=== PATIENT | male | born 1990 | race Hispanic/Latino ===

== ENCOUNTER 2016-12-28 23:48 | Emergency (ER) | payer OTHER ==
[~2016-12-28] VITALS: Ht 175.3 cm; Wt 93.2 kg
[2016-12-28 23:51] VITALS: BP 153/92; PULSE 70; RESP 16; O2SAT 100
[2016-12-28] MEDS ORDERED: Ondansetron 2 mg/mL 2 mL Inj ONE (23:56)
--- NOTE | 2016-12-29 00:05 | ED.REPORT ---
HPI-Abd Pain M Under 40 Date of Service Dec 29, 2016 ED Provider: 26 y/o male with no pertinent hx presents to the ED complaining of diffuse abdominal pain, worse in the periumbilical region, since yesterday morning. Associated sx include mild constipation, nausea and vomiting. He denies fever, diarrhea, hematochezia and melena. He also denies hx of abdominal surgeries. Nursing Notes Stated Complaint: ABDOMINAL PAIN/ VOMITING Chief Complaint: Male Abdominal Pain Nursing Notes Reviewed: Yes Allergies: Coded Allergies: No Known Allergies (Verified Allergy, Unknown, 12/28/16) Scheduled Ondansetron ODT (Ondansetron ODT) 8 Mg Tab.rapdis 8 MG PO QID General Time Seen by MD: 00:04 Chief Complaint Abdominal pain Hx Obtained From: Patient Arrived By: Walk-in Sudden in Onset?: Yes Onset Occurred: 9 - 12 hours ago Symptom Duration: Since onset Location: : Diffuse Quality: Painful Radiation: : Does not radiate Severity: Current: Moderate Severity: Maximum: Moderate Recent Healthcare: No recent doctor visit Similar Sx Previous: No Past Medical History Past Medical History None reported Past Surgical History none reported Family History Father DM Smoking History Unknown if Ever Smoker Social History Other Social History: Good social support Ambulatory Status Independent Review of Systems Constitutional: Denies: Fever GI: Reports: Abdominal pain, Constipation, Nausea, Vomiting, Denies: Diarrhea, Hematochezia, Melena Complete sys rev & neg: except as marked. Physical Exam Initial Vital Signs Vital Signs (First) Date Time Temp Pulse Resp B/P Pulse Ox O2 Delivery O2 Flow Rate FiO2 12/28/16 23:51 36.6 70 16 153/92 100 Room Air Initial VS: Reviewed Head / Eyes: Atraumatic, Normocephalic Neck: Supple, Non-tender, Full range of motion Extremities: Vascular intact, Neuro intact, No swelling, No tenderness Neurologic: Alert, Oriented, Nonfocal General/Constitutional: Awake, Alert, Cooperative Distress / Hydration: Positive: Distress mild, Negative: Dehydration mild Pt is not diaphoretic. Respiratory / Chest: Atraumatic, No respiratory distress, No wheezing Cardiovascular: Heart rate NL, Heart sounds NL Abdomen: Atraumatic, Soft, BS normoactive, No distention Tenderness/Guarding/Rebound: Positive: Tender diffuse (mildly tender to palpation) Back: Atraumatic, Full range of motion Skin: Atraumatic, No rash, Warm, Dry, Intact Interpretation & Diagnostics Lab Results Interpretation Result Diagram: 12/29/16 0023 12/29/16 0023 Test 12/29/16 00:23 White Blood Count 11.4th/mm3 (3.8-10.1) Red Blood Count 5.65mil/mm3 (4.40-5.80) Hemoglobin 16.9g/dL (13.8-17.2) Hematocrit 48.2% (41.0-50.0) Mean Corpuscular Volume 85.3fL (81-100) Mean Corpuscular Hemoglobin 29.9pg (27.0-35.0) Mean Corpuscular Hemoglobin Concent 35.1% (32.0-37.0) Red Cell Distribution Width 12.6% (12.3-15.4) Platelet Count 220bil/L (150-400) Neutrophils (%) (Auto) 83.1% (40-74) Lymphocytes (%) (Auto) 12.7% (14-46) Monocytes (%) (Auto) 3.3% (4-12) Eosinophils (%) (Auto) 0.4% (0-5) Basophils (%) (Auto) 0.3% (0-3) Hold Blue Top Tube Received (Received) Sodium Level 139mEq/L (134-144) Potassium Level 3.8mEq/L (3.5-5.2) Chloride Level 97mEq/L (97-108) Carbon Dioxide Level 23mmol/L (18-29) Blood Urea Nitrogen 9mg/dL (6-20) Creatinine 0.78mg/dL (0.76-1.27) Estimat Glomerular Filtration Rate 126mL/min (>59) Glucose Level 125mg/dL (60-99) Calcium Level 10.3mg/dL (8.5-10.1) Magnesium Level 1.8mg/dL (1.6-2.6) Total Bilirubin 0.6mg/dL (0.0-1.2) Aspartate Amino Transf (AST/SGOT) 27U/L (0-50) Alanine Aminotransferase (ALT/SGPT) 31U/L (0-44) Alkaline Phosphatase 79U/L (25-150) Total Protein 9.0g/dL (6.4-8.4) Albumin 5.1g/dL (3.4-5.0) Lipase 23U/L (13-60) Hold Mcconnell Top Tube Received (Received) CT Abd / Pelvis Interpretation Conclusion: no signs of appendicitis, bowel inflammation or obstruction/ Signed by Dr. Gloria Maradiaga 12/29/16 01:26 Interpretation / Wet Read by: Interpret - Radiologist Re-Eval/Medical Decision Med Decision/Clinical Course 26-year-old presents with a day of abdominal pain and numbness bowel movement today only. Exam is fairly benign with mild diffuse tenderness but no rebound or guarding. He does not mild leukocytosis. CT was obtained and no significant findings noted. Appendix is well seen and appears quite normal. There is moderate solid stool in the right colon. Provided with milk of magnesia tonight for anticipated improvement in his bowel movements tomorrow. Avoiding opioid pain relievers to avoid complicating constipation. Follow up with PCP or prompt return if worse, bleeding, or other new symptoms. Source of Hx: Old records Re-Evaluation/Progress : Time of Eval: 01:55 Re-Evaluation/Progress Note: Rechecked pt. Discussed lab results, imaging results, diagnosis and plan to discharge. Pt understands and agrees with the plan. F/U instruction and RTER warning given. All questions addressed. Counseled Regarding: Diagnosis, Lab results, Need for follow-up, When/why to return to ED Patient Discharge & Departure Primary Impression: Constipation Constipation type: unspecified constipation type Qualified Code: K59.00 - Constipation, unspecified Additional Impression: Generalized abdominal pain Disposition: Home Discharge Condition All VS Reviewed: Yes Condition: Stable Patient Instructions: Acute Abdominal Pain (ED), Constipation (ED) Additional Instructions: Drink plenty of clear fluids, begin with a simple diet, and advance slowly as tolerated. Follow-up with your doctor in the office. Return if worsening pain, or if you develop blood or black material in stool or vomit. Referrals: Henrry Bang MD (PCP) Scribe Attestation Portions of this note were transcribed by Justin Partida. I,, personally performed the history, physical exam and medical decision-making;I reviewed and confirmed the accuracy of the information in the transcribed note. Signed by Vania Monreal. 12/29/16 copies to: Henrry Bang MD, Christopher W MD Dec 29, 2016 00:04 Justin Partida Dec 29, 2016 00:17
[2016-12-29] MEDS ORDERED: 0.9% Sodium Chloride 1,000 ML IV ONE (00:20)
[2016-12-29] MEDS ORDERED: Ondansetron 2 mg/mL 2 mL Inj IVPUSH ONE (00:20)
[2016-12-29 00:29] LABS: BASOPHILS % (AUTO) 0.3 % (0-3); EOSINOPHILS % (AUTO) 0.4 % (0-5); MONOCYTES % (AUTO) 3.3 % (4-12); Mean Corpuscular Hemoglobin 29.9 pg (27.0-35.0); Mean Corpuscular Volume 85.3 fL (81-100); NEUTROPHILS % (AUTO) 83.1 % (40-74); Platelet Count 220 bil/L (150-400)
[2016-12-29 00:51] LABS: Magnesium 1.8 mg/dL (1.6-2.6)
[2016-12-29] MEDS ORDERED: Promethazine Inj 12.5 MG in Dextrose 5%-Pha MIX 50 ML IV ONE (01:00)
[2016-12-29] MEDS ORDERED: Magnesium Hydroxide 10 mL Oral Concentration PO ONE (01:45)
[2016-12-29] MEDS ORDERED: ONDA8TAB10 PO (01:52)
[2016-12-29] MEDS ORDERED: Ketorolac 15 mg/mL Inj IVPUSH ONE (02:00)
[2016-12-29 02:41] VITALS: BP 138/87; PULSE 64; RESP 20; O2SAT 98
--- NOTE | 2016-12-29 08:07 | DRSVH ---
P head reveal in [facility]URE: CT ABDOMEN AND PELVIS WITH CONTRAST ([id number]) INDICATIONS: abdo pain 18 hours TECHNIQUE: After the administration of intravenous contrast, 5 mm thick sections acquired from the diaphragm to the symphysis. 5 mm coronal and sagittal reformats were acquired. For radiation dose reduction, the following was used: automated exposure control, adjustment of mA and/or kV according to patient siz e. COMPARISON: None. FINDINGS: Image quality: Excellent. ABDOMEN: Lung bases: Lung bases are clear. Heart size is normal. Solid organs: Liver and spleen are normal in size and enhancement. Gallbladder is normal. Biliary system is non dilated. Pancreas enhances normally. No adrenal nodules. Kidneys demonstrate normal size and enhancement, without hydronephrosis. Peritoneum and bowel: Bowel loops demonstrate normal wall thickness and caliber. No free fluid or a ir. Normal appendix. Nodes and vessels: No retroperitoneal or mesenteric adenopathy by size criteria. Aorta and inferior vena cava are normal in size. Miscellaneous: No ventral hernias. PELVIS: Genitourinary: Bladder wall thickness is normal. Miscellaneous: No inguinal hernias or adenopathy. Bones: No suspicious bony lesions. No vertebral body compression fractures. IMPRESSION: 1. No CT evidence of acute pathology in the abdomen or pelvis. 2. There are no discrepancies with the preliminary report. Dictated by: Kingsley Munroe M.D. on 12/29/2016 at 8:04 Approved by: Kingsley Munroe M.D. on 12/29/2016 at 8:06
[2016-12-30] MEDS ORDERED: PROM25SU46 RC (17:48)
== END 2016-12-29 02:43 | disposition home or self-care (01) ==
LOC: SED 23:48
DX: K59.00 Constipation, unspecified (principal); R10.84 Generalized abdominal pain
CPT/HCPCS: 36415; 74177; 80053; 83690; 83735; 85025; 96361; 96374; 96375; 96376; 99285; J1885; J2405; J2550; J7030; Q9967

== ENCOUNTER 2016-12-30 14:17 | Emergency (ER) | payer OTHER ==
[~2016-12-30] VITALS: Ht 175.3 cm; Wt 93.2 kg
[~2016-12-30 14:17] MED LIST: ONDA8TAB10 PO
[2016-12-30 14:21] VITALS: BP 131/81; PULSE 61; RESP 16; O2SAT 100
--- NOTE | 2016-12-30 15:07 | ED.REPORT ---
HPI-Abd Pain M Under 40 Date of Service Dec 30, 2016 ED Provider: Hoang Downs MD Patient is a 26 year old male who presents to the ED complaining of vomiting onset today. Associated symptoms include nausea, constipation and weakness. Patient denies diarrhea, fever or dysuria. He reports that he uses marijuana three times a day. The patient was seen here at the ED complaining of abdominal pain, constipation and vomiting two days ago. He reports that he felt fine and had not vomited yesterday but when taking his daughter to UC today he started getting nausea and vomited again. The patient states that he used Zofran after UC with no relief. He denies any abdominal surgeries. Patient had an unremarkable CT that showed a normal appendix and mild stool. Nursing Notes Stated Complaint: VOMITING/WEAK Chief Complaint: Male Abdominal Pain Nursing Notes Reviewed: Yes Allergies: Coded Allergies: No Known Allergies (Verified Allergy, Unknown, 12/30/16) Scheduled Ondansetron ODT (Ondansetron ODT) 8 Mg Tab.rapdis 8 MG PO QID Scheduled PRN Promethazine HCl (Phenergan) 25 Mg Supp.rect 25 MG RC TID PRN PRN For Nausea General Time Seen by MD: 15:06 Chief Complaint Other (vomiting) Hx Obtained From: Patient Arrived By: Walk-in Sudden in Onset?: No Onset Occurred: 3 days ago Symptom Duration: Since onset Progression since Onset: Unchanged Location: : Diffuse Quality: Painful Severity: Current: Mild Pertinent Negative: Relieved by nothing Recent Healthcare: Recent doctor visit Similar Sx Previous: Yes Past Medical History Past Medical History None reported Past Surgical History none reported Family History Father DM Smoking History Unknown if Ever Smoker Social History Alcohol Use: Denies alcohol use Drug Use: THC (up to 3 times a day) Other Social History: Good social support Ambulatory Status Independent Review of Systems Constitutional: Reports: Malaise, Weakness - generalized, Denies: Fever Respiratory: Denies: Non-productive cough, Shortness of breath GI: Reports: Constipation, Nausea, Vomiting, Denies: Diarrhea Male: Denies Dysuria Complete sys rev & neg: except as marked. Skin: Denies Itching, Denies Rash Physical Exam Initial Vital Signs Vital Signs (First) Date Time Temp Pulse Resp B/P Pulse Ox O2 Delivery O2 Flow Rate FiO2 12/30/16 14:21 36.9 61 16 131/81 100 Room Air Initial VS: Reviewed General/Constitutional: Awake, Alert Respiratory / Chest: Atraumatic, Breath sounds NL, Breath sounds = bilat, No respiratory distress Cardiovascular: Heart rate NL, Regular rhythm, Heart sounds NL, No gallop, No murmurs, No rubs Abdomen: Atraumatic, Soft, Non-tender, BS normoactive Back: Atraumatic, No CVA tenderness Head / Eyes: Atraumatic, Normocephalic, PERRL, EOMI Rectum / Perineum: Atraumatic, No gross blood rectum nontender guaiac negative Neurologic: Oriented X3, Speech NL, No motor deficits, No sensory deficits Skin: Atraumatic, Color NL, No rash, Warm, Dry Psychiatric: Affect NL, Mood NL Interpretation & Diagnostics Lab Results Interpretation Result Diagram: 12/30/16 1610 12/30/16 1610 Test 12/30/16 16:10 12/30/16 17:14 12/30/16 17:15 White Blood Count 9.9th/mm3 (3.8-10.1) Red Blood Count 5.61mil/mm3 (4.40-5.80) Hemoglobin 16.7g/dL (13.8-17.2) Hematocrit 47.1% (41.0-50.0) Mean Corpuscular Volume 84.0fL (81-100) Mean Corpuscular Hemoglobin 29.8pg (27.0-35.0) Mean Corpuscular Hemoglobin Concent 35.5% (32.0-37.0) Red Cell Distribution Width 12.5% (12.3-15.4) Platelet Count 207bil/L (150-400) Neutrophils (%) (Auto) 87.6% (40-74) Lymphocytes (%) (Auto) 9.7% (14-46) Monocytes (%) (Auto) 2.3% (4-12) Eosinophils (%) (Auto) 0% (0-5) Basophils (%) (Auto) 0.2% (0-3) Sodium Level 136mEq/L (134-144) Potassium Level 3.7mEq/L (3.5-5.2) Chloride Level 96mEq/L (97-108) Carbon Dioxide Level 21mmol/L (18-29) Blood Urea Nitrogen 12mg/dL (6-20) Creatinine 0.88mg/dL (0.76-1.27) Estimat Glomerular Filtration Rate 110mL/min (>59) Glucose Level 93mg/dL (60-99) Calcium Level 10.0mg/dL (8.5-10.1) Magnesium Level 1.9mg/dL (1.6-2.6) Total Bilirubin 0.9mg/dL (0.0-1.2) Aspartate Amino Transf (AST/SGOT) 27U/L (0-50) Alanine Aminotransferase (ALT/SGPT) 23U/L (0-44) Alkaline Phosphatase 75U/L (25-150) Total Protein 8.5g/dL (6.4-8.4) Albumin 4.9g/dL (3.4-5.0) Lipase 31U/L (13-60) Hold Mcconnell Top Tube Received (Received) Urine Color Yellow (YELLOW) Urine Appearance Clear (CLEAR,HAZY) Urine pH 7.0 (5.0-8.0) Urine Specific [place] 1.010 (1.003-1.035) Urine Protein Negativemg/dL (NEG,TRACE) Urine Glucose (UA) Negativemg/dL (NEGATIVE) Urine Ketones 40mg/dL (NEGATIVE) Urine Occult Blood Negative (NEGATIVE) Urine Nitrite Negative (NEGATIVE) Urine Bilirubin Negative (NEGATIVE) Urine Urobilinogen Normalmg/dL (NORMAL) Urine Leukocyte Esterase Negative (NEGATIVE) Urine RBC 0-2/hpf (0-2) Urine WBC 0-5/hpf (0-5) Urine Epithelial Cells Occasional/hpf (NONE-MOD) Urine Crystals Amorphous urates (NONE Urine Bacteria None/hpf (NONE-FEW) Urine Hyaline Casts None/lpf (NONE) Urine Granular Casts None seen (NONE SEEN) Urine Waxy Casts None seen (NONE SEEN) Urine Red Blood Cell Casts None seen (NONE SEEN) Urine White Blood Cell Casts None seen (NONE SEEN) Urine Mucus None seen (None Seen) Urine Trichomonas None seen (NONE SEEN) Urine Yeast None (NONE SEEN) Urinalysis Comment None Urine Culture Reflexed Not indicated Re-Eval/Medical Decision Source of Hx: Old records Summary of Info: ABDOMEN CT FROM 12/29/16: ABDOMEN: Lung bases: Lung bases are clear. Heart size is normal. Solid organs: Liver and spleen are normal in size and enhancement. Gallbladder is normal. Biliary system is non dilated. Pancreas enhances normally. No adrenal nodules. Kidneys demonstrate normal size and enhancement, without hydronephrosis. Peritoneum and bowel: Bowel loops demonstrate normal wall thickness and caliber. No free fluid or air. Normal appendix. Nodes and vessels: No retroperitoneal or mesenteric adenopathy by size criteria. Aorta and inferior vena cava are normal in size. Miscellaneous: No ventral hernias. PELVIS: Genitourinary: Bladder wall thickness is normal. Miscellaneous: No inguinal hernias or adenopathy. Bones: No suspicious bony lesions. No vertebral body compression fractures. IMPRESSION: 1. No CT evidence of acute pathology in the abdomen or pelvis. 2. There are no discrepancies with the preliminary report. Dictated by: Kingsley Munroe M.D. on 12/29/2016 at 8:04 Approved by: Kingsley Munroe M.D. on 12/29/2016 at 8:06 Re-Evaluation/Progress #1: Time of Eval: 16:21 Patient Status: Condition improved Re-Evaluation/Progress Note: Patient reports that he is feeling better Re-Evaluation/Progress #2: Time of Eval: 17:40 Patient Status: Condition improved, Mild relief Re-Evaluation/Progress Note: Patient reports that he is no longer nauseous. Discussed lab results and plan for discharge pending urine results. Patient understands and agrees to plan. All questions were addressed. Counseled Regarding: Diagnosis, Lab results, Need for follow-up, When/why to return to ED Patient Discharge & Departure Primary Impression: Nausea & vomiting Vomiting type: unspecified Vomiting Intractability: intractable Qualified Code: R11.2 - Nausea with vomiting, unspecified Disposition: Home Discharge Condition All VS Reviewed: Yes Condition: Stable Patient Instructions: Acute Abdominal Pain (ED) Additional Instructions: Emergency Department evaluation included an area, examination and labs. Gave IV fluids and nausea medications with good results. Get adequate fluids and use milk of magnesia daily until bowels are working. It is possible that your episodic abdominal pain nausea and vomiting related to cannabis use. We advise discontinuing use of cannabis. Phenergan suppositories as needed for nausea and vomiting. Follow-up with primary care soon, return to emergency department for increasing abdominal pain uncontrolled nausea or vomiting. Referrals: Yaz Roldan MD (PCP) Scribe Attestation Portions of this note were transcribed by Carina Tracy. I, Dr. Downs personally performed the history, physical exam and medical decision-making; I reviewed and confirmed the accuracy of the information in the transcribed note. Signed by: Vania Mcdonald, 12/30/16 copies to: Yaz Roldan MD, Donald L MD Dec 30, 2016 15:06 Kirsten Tracy Dec 30, 2016 15:14
[2016-12-30] MEDS ORDERED: 0.9% Sodium Chloride 1,000 ML IV ONE (15:08)
[2016-12-30] MEDS ORDERED: Ondansetron 2 mg/mL 2 mL Inj IVPUSH PRN (15:10)
[2016-12-30 16:13] LABS: BASOPHILS % (AUTO) 0.2 % (0-3); EOSINOPHILS % (AUTO) 0 % (0-5); MONOCYTES % (AUTO) 2.3 % (4-12); Mean Corpuscular Hemoglobin 29.8 pg (27.0-35.0); NEUTROPHILS % (AUTO) 87.6 % (40-74); Platelet Count 207 bil/L (150-400)
[2016-12-30 16:35] LABS: Magnesium 1.9 mg/dL (1.6-2.6)
[2016-12-30 17:39] LABS: APPEARANCE,URINE CLEAR (CLEAR,HAZY); COLOR,URINE YELLOW (YELLOW); OCCULT BLOOD,URINE NEGATIVE (NEGATIVE); UROBILINOGEN,URINE NORMAL (NORMAL)
[2016-12-30] MEDS ORDERED: PROM25SU46 RC (17:48)
[2016-12-30 18:14] VITALS: BP 117/70; PULSE 61; RESP 16; O2SAT 99
== END 2016-12-30 18:14 | disposition home or self-care (01) ==
LOC: SED 14:17
DX: R11.2 Nausea with vomiting, unspecified (principal)
CPT/HCPCS: 36415; 80053; 81000; 83690; 83735; 85025; 93005; 96374; 99284; J2405; J7030

== ENCOUNTER 2017-01-01 23:16 | Emergency (ER) | payer OTHER ==
[~2017-01-01] VITALS: Ht 175.3 cm; Wt 93.2 kg
[~2017-01-01 23:16] MED LIST changes: +PROM25SU46 RC
[2017-01-01 23:22] VITALS: BP 137/87; PULSE 74; RESP 16; O2SAT 100
--- NOTE | 2017-01-02 00:49 | ED.REPORT ---
HPI-Abd Pain M Under 40 Date of Service Jan 02, 2017 ED Provider: Partha Manzano DO Pt is a 26 year old male presenting to the ED complaining of intermittent vomiting onset 5 days ago. He states that this is his third time in the ED this week for similar symptoms. His vomiting has persisted intermittently since onset. Today he felt okay throughout the day, and was able to keep some crackers down but his symptoms returned 2 hours ago. Associated symptoms include abdominal discomfort which he feels like is air in his stomach, constipation, and weakness. Denies using any opiates, marijuana or pain medications. He had a normal CT when he was seen in the ER a few days ago. Denies SOB or fever. Nursing Notes Stated Complaint: VOMITING Chief Complaint: Male Abdominal Pain Nursing Notes Reviewed: Yes Allergies: Coded Allergies: No Known Allergies (Verified Allergy, Unknown, 12/30/16) Scheduled Ondansetron ODT (Ondansetron ODT) 8 Mg Tab.rapdis 8 MG PO QID Scheduled PRN Promethazine HCl (Phenergan) 25 Mg Supp.rect 25 MG RC TID PRN PRN For Nausea General Time Seen by MD: 00:25 Chief Complaint Vomiting moderate Hx Obtained From: Patient Arrived By: Walk-in Sudden in Onset?: No Onset Occurred: 5 days ago Symptom Duration: Since onset Progression since Onset: Intermittent Location: : Diffuse Severity: Current: Mild Severity: Maximum: Mild Recent Healthcare: No recent hospitalization, Recent doctor visit Similar Sx Previous: Yes Past Medical History Past Medical History None reported Past Surgical History none reported Family History Father DM Smoking History Never Smoker Social History Alcohol Use: Denies alcohol use Drug Use: Denies drug use Other Social History: Good social support Ambulatory Status Independent Review of Systems Constitutional: Reports: Weakness - generalized, Denies: Fever Respiratory: Denies: Shortness of breath GI: Reports: Abdominal pain, Constipation, Nausea, Vomiting Complete sys rev & neg: except as marked. Physical Exam Initial Vital Signs Vital Signs (First) Date Time Temp Pulse Resp B/P Pulse Ox O2 Delivery O2 Flow Rate FiO2 01/01/17 23:22 36.9 74 16 137/87 100 Room Air Initial VS: Reviewed Head / Eyes: Atraumatic, Normocephalic, PERRL ENT: Mucous membranes moist, Conjunctiva normal, No scleral icterus Extremities: Vascular intact, Neuro intact, No swelling, No tenderness Skin: Warm, Dry, No cyanosis Neurologic: Alert, Oriented, Nonfocal Psychiatric: Mood/affect normal, Behavior normal, Normal thought content General/Constitutional: Awake, Alert, No acute distress, Well appearing Respiratory / Chest: Breath sounds NL, Breath sounds = bilat, No respiratory distress, No rales, No rhonchi, No wheezing, No stridor Cardiovascular: Heart rate NL, Regular rhythm, Heart sounds NL, No murmurs Abdomen: Atraumatic, Soft, BS normoactive, No distention No focal tenderness to palpation Interpretation & Diagnostics CT abd/pelvis with contrast from 12/29/[address]: 1[address] evidence of acute pathology in the abdomen or pelvis. 2. There are no discrepancies with the preliminary report. Dictated by: Kingsley Munroe M.D. on 12/29/2016 at 8:04 Approved by: Kingsley Munroe M.D. on 12/29/2016 at 8:06 Lab Results Interpretation Result Diagram: 01/02/17 0144 01/02/17 0144 Test 01/02/17 01:44 01/02/17 01:45 White Blood Count 10.9th/mm3 (3.8-10.1) Red Blood Count 5.47mil/mm3 (4.40-5.80) Hemoglobin 16.3g/dL (13.8-17.2) Hematocrit 45.2% (41.0-50.0) Mean Corpuscular Volume 82.6fL (81-100) Mean Corpuscular Hemoglobin 29.8pg (27.0-35.0) Mean Corpuscular Hemoglobin Concent 36.1% (32.0-37.0) Red Cell Distribution Width 12.4% (12.3-15.4) Platelet Count 244bil/L (150-400) Neutrophils (%) (Auto) 78.2% (40-74) Lymphocytes (%) (Auto) 14.6% (14-46) Monocytes (%) (Auto) 6.3% (4-12) Eosinophils (%) (Auto) 0.3% (0-5) Basophils (%) (Auto) 0.4% (0-3) Sodium Level 137mEq/L (134-144) Potassium Level 4.2mEq/L (3.5-5.2) Chloride Level 94mEq/L (97-108) Carbon Dioxide Level 23mmol/L (18-29) Blood Urea Nitrogen 12mg/dL (6-20) Creatinine 0.80mg/dL (0.76-1.27) Estimat Glomerular Filtration Rate 122mL/min (>59) Glucose Level 95mg/dL (60-99) Calcium Level 10.0mg/dL (8.5-10.1) Magnesium Level 2.1mg/dL (1.6-2.6) Total Bilirubin 1.4mg/dL (0.0-1.2) Aspartate Amino Transf (AST/SGOT) 34U/L (0-50) Alanine Aminotransferase (ALT/SGPT) 21U/L (0-44) Alkaline Phosphatase 77U/L (25-150) Total Protein 8.9g/dL (6.4-8.4) Albumin 5.1g/dL (3.4-5.0) Lipase 27U/L (13-60) Hold Mcconnell Top Tube Received (Received) X-Ray Abdominal Interpretation Normal bowel gas pattern. No acute abnormalities. Interpretation / Wet Read by: Wet read ED physician Re-Eval/Medical Decision Med Decision/Clinical Course Pt presents to the ED for the 5th time in 1 week for intractable N/V which has been unresponsive to phenergan and zofran. Has had labs done and essentially normal x2 within the past week as well as a normal CT. No BM x5 days. Today VS , labs and abd xray are normal. Symptoms improved with zofran and reglan but again worsened when he tried to drink. Treated with ativan and haldol and sx resolved. Reglan rx given to be used in conjunction with other meds and GI f/u recommended. Pt adamantly denies use of THC. Re-Evaluation/Progress #1: Time of Eval: 01:55 Patient Status: Condition improved Re-Evaluation/Progress Note: Discussed radiology results. Re-Evaluation/Progress #2: Time of Eval: 02:45 Patient Status: Condition improved Re-Evaluation/Progress Note: Discussed lab results and plan for discharge. Pt understands and agrees with plan. Counseled Regarding: Diagnosis, Lab results, Need for follow-up, When/why to return to ED Patient Discharge & Departure Primary Impression: Cyclic vomiting syndrome Vomiting Intractability: intractable Nausea presence: with nausea Qualified Code: G43.A1 - Cyclical vomiting, intractable Disposition: Home Discharge Condition All VS Reviewed: Yes Condition: Improved Patient Instructions: Acute Nausea and Vomiting (ED) Additional Instructions: Follow up with your primary care doctor in the next week. You should also follow up with Dr. Montgomery from gastroenterology. No cause for your vomiting was identified in the ER. Return to the ER if you develop any new or worsening symptoms. Continue to use the Phenergan suppositories and the Zofran as needed for anxiety. I am also giving you a prescription for Reglan 10 mg which can be taken up to 3 times a day with meals to help decrease nausea. Referrals: Yaz Roldan MD (PCP) Hoang Montgomery MD Attestation Portions of this note were transcribed by Sue Wolf. I, Dr. Manzano personally performed the history, physical exam and medical decision-making; I reviewed and confirmed the accuracy of the information in the transcribed note. Signed by: Vania Ho, 01/02/2017. copies to: Yaz Roldan MD; Hoang Montgomery MD, Gary R DO Jan 02, 2017 00:49 SUE WOLF Jan 02, 2017 00:56
[2017-01-02] MEDS ORDERED: 0.9% Sodium Chloride 1,000 ML IV ONE (00:55)
[2017-01-02] MEDS ORDERED: Ondansetron 2 mg/mL 2 mL Inj IVPUSH ONE (00:55)
[2017-01-02] MEDS ORDERED: MetoCLOpramide 5 mg/mL 2 mL Inj IM ONE (01:00)
[2017-01-02 01:49] LABS: BASOPHILS % (AUTO) 0.4 % (0-3); EOSINOPHILS % (AUTO) 0.3 % (0-5); MONOCYTES % (AUTO) 6.3 % (4-12); Mean Corpuscular Hemoglobin 29.8 pg (27.0-35.0); Mean Corpuscular Volume 82.6 fL (81-100); NEUTROPHILS % (AUTO) 78.2 % (40-74); Platelet Count 244 bil/L (150-400)
[2017-01-02 02:08] LABS: Magnesium 2.1 mg/dL (1.6-2.6)
[2017-01-02] MEDS ORDERED: Haloperidol 5 mg/mL Inj IVPUSH ONE (02:50)
--- NOTE | 2017-01-02 08:53 | DRSVH ---
PROCEDURE: X-RAY ACUTE ABDOMINAL SERIES ([id number]) INDICATIONS: constipation, n/v TECHNIQUE: One view chest and two views of the abdomen were acquired. COMPARISON: None. FINDINGS: Surgical changes and devices: Fixation hardware involves a proximal left femur incompletely visualize d. Chest: Lungs are clear. Heart size is normal. No pleural effusions. No pneumoperitoneum. Abdomen: Bowel gas pattern is normal. No suspicious calcifications. Visualized solid organ contour s appear normal. Bones: No suspicious bony lesions. IMPRESSION: No acute process seen within the chest or abdomen. Dictated by: Demarcus Moe [facility] Interpreted: Derek Harris MD on 01/02/2017 at 8:32 Approved by: Derek Harris M.D. on 01/02/2017 at 8:51
== END 2017-01-02 04:29 | disposition home or self-care (01) ==
LOC: SED 23:16
DX: G43.A1 Cyclical vomiting, in migraine, intractable (principal)
CPT/HCPCS: 36415; 74022; 80053; 83690; 83735; 85025; 96361; 96372; 96374; 96375; 99285; J1630; J2060; J2405; J2765; J7030